=== PATIENT | male | born 1955 | race Caucasian/White ===

== ENCOUNTER → 2017-07-05 | Day surgery (SDC) | payer OTHER ==
[2017-06-28 14:33] LABS: BASOPHILS % 0.5 % (0.0-1.0); EOSINOPHILS # (AUTO) 0.3 (0.0-0.4); EOSINOPHILS % 4.3 % (0.0-6.0); HEMATOCRIT 33.8 % (38.2-49.6); HEMOGLOBIN 11.9 g/dL (14.0-18.0); LYMPHOCYTES # (AUTO) 1.5 (1.0-3.2); MEAN CORPUSCULAR HEMOGLOBIN 31.4 pg (28-32); MEAN CORPUSCULAR HGB CONC 35.2 g/dL (31-35); MEAN CORPUSCULAR VOLUME 89.2 fL (81-99); MONOCYTES # (AUTO) 0.5 (0.2-0.8); MONOCYTES % 9.3 % (4.4-11.3); NEUTROPHILS # (AUTO) 3.5 (2.1-6.9); NEUTROPHILS % 60.4 % (38.7-80.0); PLATELET COUNT 157 x10e3/uL (140-360); RED BLOOD COUNT 3.79 x10e6/uL (4.3-5.7); RED CELL DISTRIBUTION WIDTH 12.2 % (11.7-14.4)
[~2017-07-05] MED LIST: AMIODARONE HCL200 MG PO; ANTIVERT12.5 MG PO; CADUET 5 MG-201 EACH PO; CLONIDINE HCL0.1 MG TOP; COREG12.5 MG PO; DIAZEPAM5 MG PO; DICLOFENAC PO; FUROSEMIDE40 MG PO; KETAMINE HCL INJ 50 MG/ML 10 ML VIAL ONE; LEVAQUIN500 MG PO; LIDOCAINE HCL 2% LOCAL INJ 5 ML SDV VIAL INJ ONE; LIPITOR20 MG PO; LISINOPRIL10 MG PO; MIDAZOLAM HCL 2 MG/2 ML VIAL ONE; NEXIUM40 MG PO; OMEPRAZOLE MAGN20 MG PO; OXYCONTIN10 MG PO; PANTOPRAZOLE SO40 MG PO; PROPOFOL IV EMULSION 10 MG/ML 50 ML VIAL ONE; QUETIAPINE FUMA25 MG PO; TYLENOL # 31 EA PO; VITAMIN D1000 UNI1 PO; XARELTO10 MG PO
--- OUTSIDE RECORDS SUMMARY | 2017-07-05 10:38 | XMS REPORT ---
Author Author [facility] Address Unknown Phone Unavailable Care Team Providers Care [employer] Apprentice Name Role Phone THIERRY ALEJANDRO Unavailable Unavailable Problems This patient has no known problems. Allergies, Adverse Reactions, Alerts This patient has no known allergies or adverse reactions. Medications This patient has no known medications. Results Test Description Test Time Test Comments Text Results Atomic Results Result Comments TISSUE EXAM 2017-03-29 14:22:00 Surgical Pathology Report Case: [id number] Authorizing Provider: Thierry Alejandro MD Collected: 03/27/2017 0837 Ordering Location: [facility] Endoscopy Received: 2016 1347 Services Pathologist: Arden Mcnamara MD Specimen: Stomach, Antrum, nodule STOMACH ANTRUM NODULE BIOPSY- SMALL PIECES OF SUBMUCOSAL SMOOTH MUSCLE TISSUE, IMMUNOHISTOCHEMICAL PROFILE SUGGESTIVE OF LEIOMYOMA- CHRONIC INACTIVE GASTRITIS , MILD- NO INTESTINAL METAPLASIA, NO DYSPLASIA AND NO MALIGNANCY IDENTIFIED- NO HELICOBACTER PYLORI ORGANISMS IDENTIFIED ON WARTHIN-STARRY STAIN Signing Pathologist Direct Phone Line: [phone] signed by Arden Mcnamara MD on 03/29/2017 at 2:22 [id number] x 4Gastric nodule Stomach antrum nodule biopsyThe specimen is received in a formalin- filled container labeled with the patient's information and labeled "stomach antrum nodule biopsy" and consists of two round fragments of garay tissue measuring 0.4 and 0.5 cm, submitted entirely in A1. CG/ew Sections reveal small pieces of submucosal smooth muscle tissue, immunohistochemical profile shows Desmin and SMA immunoreactivity suggestive of leiomyoma. DOG-1, CD34 stains are negative ruling out GIST. S100 stain is also negative. Fragments of benign antral and corpus mucosa show mild chronic inflammation. No active gastritis is seen. No Helicobacter pylori organisms are identified on Warthin - Starry stain. Intestinal metaplasia, dysplasia and malignancy are not seen.The following special studies were performed on this case and the interpretation is incorporated in the diagnostic report above:IMMUNOHISTOCHEMISTRY/SPECIAL STAIN SUMMARY:The results of immunohistochemical studies and/or special stains are as follows: Warthin-Starry stain - No Helicobacter pylori organisms identified CD34 - Negative DOG-1 - Negative S100 - Negative Desmin - Positive SMA - PositiveThe immunohistochemistry test was developed and its performance characteristics determined by [facility]. It has not been cleared or approved by the U.S. Food and Drug Administration. The FDA has determined that such clearance or approval is not necessary. The test is used for clinical purposes. It should not be regarded as investigational or for research. This laboratory is certified under the Clinical Laboratory Improvement Amendments of 1988 (CLIA-88) as qualified to perform high complexity clinical laboratory testing.
--- NOTE | 2017-07-08 08:29 | Operative Report ---
DATE OF PROCEDURE: July 05, 2017 REFERRING PHYSICIAN: Dr. Yang. PROCEDURE PERFORMED: Esophagogastroduodenoscopy with esophageal dilatation. INDICATIONS FOR ESOPHAGOGASTRODUODENOSCOPY: Dysphagia, heartburn indigestion. MEDICATION: Patient was done under MAC. Please see anesthesiologist's note. PROCEDURE: With the patient in the left lateral decubitus position, the flexible fiberoptic Olympus gastroscope was introduced into the esophagus under direct visualization without any difficulty. There was some patchy erythema noted in the distal esophagus. There was a mild stricture noted, and that was dilated to size 54-Libyan Valdez. The scope was then advanced with ease into the stomach, traversing a moderate-sized hiatal hernia. Mucosa overlying the antrum and the body revealed some patchy erythema. The previously described submucosal nodule, antrum, was also noted. Pylorus was intubated with ease, and the scope was advanced all the way to the 2nd portion of the duodenum. The scope was then withdrawn slowly. Mucosa overlying the proximal 2nd portion and the duodenal bulb grossly appeared to be within normal limits. The scope was then withdrawn back into the stomach and retroflexed. Fundus appeared to be within normal limits. There was a nodule noted in the cardia that was previously biopsied and was unremarkable. The scope was then straightened out. The stomach was decompressed. The scope was subsequently withdrawn. Patient tolerated procedure well. IMPRESSION: 1. Mild distal esophagitis. 2. Esophageal stricture, mild, gastroesophageal junction, dilated to size 54-Libyan Valdez. 3. Moderate-sized hiatal hernia. 4. Gastritis, mild. 5. Submucosal nodule, antrum. PLAN: Continue Protonix 40 mg 1 p.o. a.c. b.i.d. Add Reglan 10 mg 1 p.o. a.c. t.i.d. and nightly. Job#: [id number] EV cc: DR. YANG
== END | disposition home or self-care (01) ==
LOC: OR 10:37
PROVIDERS: ATTEND Internal Medicine Gastroenterology
DX: K22.2 Esophageal obstruction (principal); K29.70 Gastritis, unspecified, without bleeding; K31.89 Other diseases of stomach and duodenum; K20.9 Esophagitis, unspecified; K44.9 Diaphragmatic hernia without obstruction or gangrene; K21.9 Gastro-esophageal reflux disease without esophagitis; G47.33 Obstructive sleep apnea (adult) (pediatric); J44.9 Chronic obstructive pulmonary disease, unspecified; I11.0 Hypertensive heart disease with heart failure; I50.9 Heart failure, unspecified; H91.90 Unspecified hearing loss, unspecified ear; I25.10 Atherosclerotic heart disease of native coronary artery without angina pectoris; R00.1 Bradycardia, unspecified; F41.9 Anxiety disorder, unspecified; Z01.810 Encounter for preprocedural cardiovascular examination; Z01.812 Encounter for preprocedural laboratory examination; Z79.02 Long term (current) use of antithrombotics/antiplatelets; Z68.41 Body mass index [BMI] 40.0-44.9, adult; Z87.01 Personal history of pneumonia (recurrent)
CPT/HCPCS: 36415; 43235; 43450; 85025; 93005; J2001; J2250

== ENCOUNTER → 2017-08-05 | Outpatient (CLI) | payer OTHER ==
[~2017-08-05] MED LIST changes: -KETAMINE HCL INJ 50 MG/ML 10 ML VIAL ONE; -LIDOCAINE HCL 2% LOCAL INJ 5 ML SDV VIAL INJ ONE; -MIDAZOLAM HCL 2 MG/2 ML VIAL ONE; -PROPOFOL IV EMULSION 10 MG/ML 50 ML VIAL ONE
--- NOTE | 2017-08-05 12:24 | Diagnostic Imaging Report ---
PROCEDURE:X-RAY MODIFIED BARIUM SWALLOW COMPARISON:None. INDICATIONS:DYSPHAGIA DISCUSSION:Fluoroscopic examination was performed in conjunction with speech pathology, during swallowing of a variety of thin and thick liquid consistencies. CONCLUSION: No penetration or aspiration. Please see the report from speech pathology for complete details. Dictated by: Bradley Bill M.D. on 08/05/2017 at 12:25 Electronically approved by: Bradley Bill M.D. on 08/05/2017 at 12:25
--- NOTE | 2017-08-05 12:48 | Diagnostic Imaging Report ---
PROCEDURE:ABDOMINAL ULTRASOUND COMPARISON:None. INDICATIONS:RUQ/LUQ PAIN FINDINGS: Liver: 15.7 cm. Increased hepatic parenchymal echogenicity. No focal mass. Main portal vein: 1.1 cm. Hepatopedal flow. Gallbladder: No echogenic calculi, gallbladder wall thickening, or pericholecystic fluid. Common Bile Duct: 6.0 mm. No echogenic filling defect. Sonographic Whittington's sign: Negative. Right kidney: 12.8 cm. No solid or cystic mass, echogenic calculi, or hydronephrosis. Normal parenchymal echogenicity. Left kidney: 11.2 cm. No solid or cystic mass, echogenic calculi, or hydronephrosis. Normal parenchymal echogenicity. Spleen: 11.6 cm. No focal mass. Pancreas: The pancreas was insufficiently visualized for comment secondary to overlying bowel gas and increased body habitus. Inferior vena cava: Normal. Aorta: Normal. Ascites: None. CONCLUSION: 1. No acute sonographic abnormality. 2. Hepatic steatosis. Dictated by: Bradley Bill M.D. on 08/05/2017 at 12:49 Electronically approved by: Bradley Bill M.D. on 08/05/2017 at 12:49
== END | disposition home or self-care (01) ==
LOC: US 08:58
PROVIDERS: ATTEND Internal Medicine Gastroenterology
DX: R13.10 Dysphagia, unspecified (principal); R10.12 Left upper quadrant pain; R10.13 Epigastric pain; R10.11 Right upper quadrant pain; R11.2 Nausea with vomiting, unspecified; K76.0 Fatty (change of) liver, not elsewhere classified
CPT/HCPCS: 74230; 76700